=== PATIENT | male | born 1950 | race Caucasian/White ===

== ENCOUNTER → 2023-01-02 10:50 | Outpatient (BNVA) | payer MEDICARE, MEDICAID, SELFPAY | PROVIDERS: Family Provider Internal Medicine; PCP Internal Medicine; Visit Provider Podiatrist Foot & Ankle Surgery | DX: M20.41 Other hammer toe(s) (acquired), right foot (principal) | CPT/HCPCS: 99203 ==

== ENCOUNTER → 2023-01-24 09:18 | Outpatient (BNVA) | payer MEDICARE, MEDICAID, SELFPAY | PROVIDERS: Family Provider Internal Medicine; PCP Internal Medicine; Visit Provider Podiatrist Foot & Ankle Surgery | DX: M20.41 Other hammer toe(s) (acquired), right foot (principal) | CPT/HCPCS: 28010 ==

== ENCOUNTER → 2023-02-07 10:22 | Outpatient (BNVA) | payer MEDICARE, MEDICAID, SELFPAY | PROVIDERS: Family Provider Internal Medicine; PCP Internal Medicine; Visit Provider Podiatrist Foot & Ankle Surgery | DX: M20.41 Other hammer toe(s) (acquired), right foot | CPT/HCPCS: 99024; 99213 ==